=== PATIENT | male | born 1990 | race Caucasian/White ===

== ENCOUNTER 2019-12-26 20:44 | Emergency (ER) | payer SELFPAY ==
[~2019-12-26] VITALS: Ht 185.4 cm; Wt 67.0 kg
[2019-12-26 20:55] VITALS: BP 143/86
--- NOTE | 2019-12-26 22:26 | NUR ---
not in lobby
--- NOTE | 2019-12-26 22:43 | NUR ---
pt not in lobby when called for room.
--- NOTE | 2019-12-26 22:56 | NUR ---
pt not in lobby when called for room. pt lwbs.
== END 2019-12-26 23:09 | disposition left against medical advice (07) ==
LOC: ED 23:02
DX: R68.84 Jaw pain (principal); Z53.21 Procedure and treatment not carried out due to patient leaving prior to being seen by health care provider